=== PATIENT | female | born 2000 | race Two or more races ===

== ENCOUNTER 2024-12-07 11:46 | Emergency (ER) | payer OTHER ==
[~2024-12-07] VITALS: Ht 167.6 cm; Wt 59.9 kg
[2024-12-07 12:49] LABS: HEMATOCRIT 40.4 % (36.0-45.00); HEMOGLOBIN 13.6 g/dL (12.0-15.00); MEAN CELL VOLUME 89.3 fL (80.00-100.00); MEAN CORPUSCULAR HGB CONC 33.6 g/dl (32.0-36.0); PLATELET COUNT 374 K/uL (150-450); RED BLOOD COUNT 4.52 M/uL (4.00-6.00); RED CELL DISTRIBUTION WIDTH 12.9 % (11.5-14.5)
[2024-12-07 13:47] LABS: CALCIUM 9.4 mg/dL (8.5-10.1); CREATININE SERUM 0.7 mg/dL (0.55-1.02); GFR 101.95; POTASSIUM 3.93 mEq/L (3.5-5.1)
== END 2024-12-07 15:33 | disposition home or self-care (01) ==
LOC: ER 11:46
PROVIDERS: Emergency Medicine
DX: G40.909 Epilepsy, unspecified, not intractable, without status epilepticus (principal)

== ENCOUNTER 2025-02-01 11:25 | Emergency (ER) | payer OTHER ==
[~2025-02-01] VITALS: Ht 167.6 cm; Wt 59.0 kg
[2025-02-01 13:15] LABS: URINE APPEARANCE Clear; URINE BILIRRUBIN Negative (NEGATIVE); URINE BLOOD Negative; URINE COLOR Yellow; URINE GLUCOSE Negative (NEGATIVE); URINE KETONE Negative (NEGATIVE); URINE LEUKOCYTE Trace; URINE NITRATE Negative; URINE PROTEIN Negative (NEGATIVE); URINE UROBILINOGEN 0.2 E.U./dl
[2025-02-01 13:17] LABS: URINE BACTERIA 2959.3 uL (0.0-1933); URINE EPITHELIAL CELLS 31.1 uL (0.0-38.8); URINE RBC 5.7 uL (0.0-20.8); URINE WBC 17.2 uL (0.0-23.2)
[2025-02-01 13:20] LABS: HEMATOCRIT 37.8 % (36.0-45.00); HEMOGLOBIN 13.2 g/dL (12.0-15.00); MEAN CELL VOLUME 88.2 fL (80.00-100.00); MEAN CORPUSCULAR HEMOGLOBIN 30.7 pg (27.00-32.0); MEAN CORPUSCULAR HGB CONC 34.8 g/dl (32.0-36.0); PLATELET COUNT 350 K/uL (150-450); RED BLOOD COUNT 4.29 M/uL (4.00-6.00); RED CELL DISTRIBUTION WIDTH 12.5 % (11.5-14.5)
[2025-02-01 14:07] LABS: CALCIUM 9.5 mg/dL (8.5-10.1); CREATININE SERUM 0.6 mg/dL (0.55-1.02); GFR 121.8; POTASSIUM 4.33 mEq/L (3.5-5.1)
== END 2025-02-01 14:46 | disposition home or self-care (01) ==
LOC: ER 11:25
PROVIDERS: Emergency Medicine
DX: R56.9 Unspecified convulsions (principal)